=== PATIENT | male | born 1985 | race Caucasian/White ===

== ENCOUNTER 2016-05-26 07:44 | Emergency (ER) | payer MEDICAID ==
[~2016-05-26] VITALS: Ht 185.4 cm; Wt 80.7 kg
[2016-05-26 10:13] VITALS: BP 130/78
== END 2016-05-26 10:33 | disposition home or self-care (01) ==
LOC: ER 07:50
DX: J02.9 Acute pharyngitis, unspecified (principal); J32.1 Chronic frontal sinusitis; J20.9 Acute bronchitis, unspecified